=== PATIENT | female | born 1935 | race Caucasian/White ===

== ENCOUNTER → 2018-11-08 11:33 | Outpatient (CLI) | payer MEDICARE, BC, MEDICAID, SELFPAY ==
[2018-11-08 12:28] LABS: BUN Creatinine Ratio 15.7 (6-22); Blood Urea Nitrogen 11 mg/dL (7-17); Calcium 9.5 mg/dL (8.4-10.2); Carbon Dioxide 27 mmol/L (22-32); Chloride 99 mmol/L (98-107); Estimated Glomerular Filt Rate > 60.0 mL/min (>60); Glucose 125 mg/dL (80-110); HEMOLYSIS < 15 (0-50); Potassium 3.7 mmol/L (3.4-5.1); Sodium 138 mmol/L (137-145)
[2018-11-08 13:13] LABS: Hematocrit 32.6 % (36-46); Mean Corpuscular HGB Conc 33.6 % (30-36); Mean Corpuscular Hemoglobin 34.4 PG (26-34); Mean Corpuscular Volume 102.5 fL (80-100); Platelet Count 185 X10^3/uL (150-400); Red Blood Cell Count 3.18 X10^6/uL (4.0-5.2); Red Cell Distribution Width 15.4 % (11.6-14.8); White Blood Cell Count 8.5 X10^3/uL (4.5-11.0)
[2018-11-08 15:20] LABS: Alanine Aminotransferase 32 IU/L (9-52); Albumin 4.3 g/dL (3.5-5.0); Albumin Globulin Ratio 1.3 (1.0-2.8); Alkaline Phosphatase 112 U/L (38-126); Aspartate Aminotransferase 42 IU/L (14-36); Bilirubin Total 0.7 mg/dL (0.2-1.3); Bilirubin Unconjugated 0.4 mg/dL (0.0-1.1); Globulin 3.2 g/dL (1.7-4.1); HEMOLYSIS < 15 (0-50); Total Protein 7.5 g/dL (6.3-8.2)
[2018-11-08 15:50] LABS: TSH w/ Reflex to FT4 4.59 uIU/mL (0.47-4.68); Vitamin D 25 Hydroxy (D3) < 12.8 ng/mL (30.0-100.0)
[2018-11-08 16:25] LABS: Folate 5.7 ng/mL (2.76-20.0); Vitamin B12 371 pg/mL (239-931)
== END ==
PROVIDERS: Family Provider Family Medicine; PCP Student in an Organized Health Care Education/Training Program; Visit Provider Student in an Organized Health Care Education/Training Program
DX: E55.9 Vitamin D deficiency, unspecified (principal); H34.232 Retinal artery branch occlusion, left eye; Z86.711 Personal history of pulmonary embolism; D53.1 Other megaloblastic anemias, not elsewhere classified; I10 Essential (primary) hypertension
CPT/HCPCS: 36415; 80048; 80076; 82306; 82607; 82746; 84443; 85027

== ENCOUNTER → 2018-12-20 07:35 | Outpatient (CLI) | payer MEDICARE, BC, MEDICAID, SELFPAY ==
[2018-12-20 08:09] LABS: Hematocrit 30.9 % (36-46); Hemoglobin 10.4 g/dL (12.0-16.0); Mean Corpuscular HGB Conc 33.7 % (30-36); Mean Corpuscular Hemoglobin 34.7 PG (26-34); Mean Corpuscular Volume 102.9 fL (80-100); Platelet Count 173 X10^3/uL (150-400); Red Cell Distribution Width 16.4 % (11.6-14.8); White Blood Cell Count 8.6 X10^3/uL (4.5-11.0)
[2018-12-20 08:25] LABS: Reticulocyte Count, Percent 1.2 % (1.06-2.63)
[2018-12-20 09:21] LABS: HEMOLYSIS < 15 (0-50); Iron 183 ug/dL (37-170)
[2018-12-20 09:23] LABS: Alkaline Phosphatase 98 U/L (38-126); BUN Creatinine Ratio 15.7 (6-22); Blood Urea Nitrogen 11 mg/dL (7-17); Calcium 10.6 mg/dL (8.4-10.2); Carbon Dioxide 27 mmol/L (22-32); Chloride 98 mmol/L (98-107); Estimated Glomerular Filt Rate > 60.0 mL/min (>60); Glucose 112 mg/dL (80-110); HEMOLYSIS < 15 (0-50); Potassium 4.2 mmol/L (3.4-5.1); Sodium 136 mmol/L (137-145)
[2018-12-20 09:27] LABS: Neutrophils Absolute Manual 5246 /uL (3000-5900); Total Cells Counted 100
[2018-12-20 09:28] LABS: RBC Morphology Normal Morphology
[2018-12-20 09:33] LABS: Percent Iron Saturation 56 % (15-50); Total Iron Binding Capacity 327 ug/dL (265-497); Transferrin 292 mg/dL (206-381)
[2018-12-20 09:38] LABS: Vitamin D 25 Hydroxy (D3) 39.2 ng/mL (30.0-100.0)
[2018-12-24 17:07] LABS: Parathyroid Hormone Int 5 pg/mL (14-64)
--- NOTE | 2019-01-08 16:27 | ONC.SCHED ---
Left msg. for new patient to get her scheduled.
== END ==
PROVIDERS: PCP Student in an Organized Health Care Education/Training Program; Visit Provider Student in an Organized Health Care Education/Training Program
DX: D50.9 Iron deficiency anemia, unspecified (principal); E55.9 Vitamin D deficiency, unspecified
CPT/HCPCS: 36415; 80048; 82306; 82728; 83516; 83540; 83550; 83970; 84075; 84100; 85025; 85045

== ENCOUNTER → 2019-01-03 09:51 | Outpatient (CLI) | payer MEDICARE, BC, MEDICAID, SELFPAY | PROVIDERS: PCP Student in an Organized Health Care Education/Training Program; Visit Provider Student in an Organized Health Care Education/Training Program | DX: Z13.820 Encounter for screening for osteoporosis (principal); M81.0 Age-related osteoporosis without current pathological fracture; Z78.0 Asymptomatic menopausal state; Z87.891 Personal history of nicotine dependence | CPT/HCPCS: 77080 ==

== ENCOUNTER → 2019-02-11 07:41 | Outpatient (CLI) | payer MEDICARE, BC, MEDICAID, SELFPAY ==
--- NOTE | 2019-02-11 07:44 | DI.US.S_ITS ---
PROCEDURE: US ABDOMEN COMPLETE INDICATIONS: ANEMIA, IRON OVERLOAD, HEPATOMEGALY TECHNIQUE: Real-time scanning was performed of the abdominal and retroperitoneal organs, with image documentation. COMPARISON: CT pulmonary angiogram 11/23/2011. FINDINGS: Liver: Enlarged measuring at least 18 cm in diameter. Increased in echogenicity. Decreased sonographic penetration. Gallbladder: Nondilated. No stones or sludge. Normal gallbladder wall thickness. No pericholecystic fluid. Negative sonographic Elizabeth's sign. Biliary ducts: No intrahepatic biliary ductal dilatation seen. Extrahepatic bile ducts are not well-seen. Pancreas: Not well-seen. Spleen: Spleen is normal in size and homogeneous in echotexture. Measures 8.3 cm. Kidneys: Kidneys are normal in size and echotexture. Right kidney measures 11 cm long; left kidney measures 9.6 cm long. No hydronephrosis or nephrolithiasis. No solid masses. Aorta: Visualized proximal aorta is normal in caliber at less than 3 cm. Iliacs: Not well-seen IVC: Intrahepatic inferior vena cava is patent. Miscellaneous: No free abdominal fluid. IMPRESSION: Exam is limited by acoustic windows. 1. Hepatomegaly. Hepatic steatosis. 2. No gallstones seen. 3. No free fluid. Dictated by: Gurpreet Lew M.D. on 02/11/2019 at 9:06 Approved by: Gurpreet Lew M.D. on 02/11/2019 at 9:11
== END ==
PROVIDERS: Family Provider Student in an Organized Health Care Education/Training Program; PCP Student in an Organized Health Care Education/Training Program; Visit Provider Internal Medicine Hematology & Oncology
DX: R16.0 Hepatomegaly, not elsewhere classified (principal); K76.0 Fatty (change of) liver, not elsewhere classified; E83.19 Other disorders of iron metabolism; D53.9 Nutritional anemia, unspecified
CPT/HCPCS: 76700

== ENCOUNTER → 2020-05-03 07:47 | Outpatient (CLI) | payer MEDICARE, BC, MEDICAID, SELFPAY ==
[2020-05-03 08:47] LABS: Add Manual Diff / Slide Review NO; Basophils Absolute Auto 200 /uL (0-100); Basophils Percent Auto 2.7 % (0-2); Eosinophils Absolute Auto 200 /uL (0-450); Eosinophils Percent Auto 3.4 % (2-4); Hematocrit 25.9 % (36-46); Hemoglobin 8.5 g/dL (12.0-16.0); Lymphocytes Absolute Auto 2800 /uL (1100-4500); Lymphocytes Percent Auto 38.6 % (25-40); Mean Corpuscular HGB Conc 32.8 % (30-36); Mean Corpuscular Hemoglobin 35.5 PG (26-34); Mean Corpuscular Volume 108.2 fL (80-100); Monocytes Absolute Auto 1100 /uL (0-900); Monocytes Percent Auto 14.5 % (3-14); Neutrophils Absolute Auto 3000 /uL (1500-7000); Neutrophils Percent Auto 40.8 % (50-75); Platelet Count 206 X10^3/uL (150-400); Red Blood Cell Count 2.39 X10^6/uL (4.0-5.2); Red Cell Distribution Width 22.3 % (11.6-14.8); White Blood Cell Count 7.3 X10^3/uL (4.5-11.0)
[2020-05-03 08:56] LABS: Alanine Aminotransferase 24 IU/L (<35); Albumin 4.4 g/dL (3.5-5.0); Albumin Globulin Ratio 1.3 (1.0-2.8); Alkaline Phosphatase 80 U/L (38-126); Aspartate Aminotransferase 43 IU/L (14-36); BUN Creatinine Ratio 21.9 (6-22); Bilirubin Total 0.5 mg/dL (0.2-1.3); Blood Urea Nitrogen 16 mg/dL (7-17); Calcium 9.7 mg/dL (8.4-10.2); Carbon Dioxide 30 mmol/L (22-32); Chloride 101 mmol/L (98-107); Estimated Glomerular Filt Rate > 60.0 mL/min (>60); Globulin 3.3 g/dL (1.7-4.1); Glucose 127 mg/dL (80-110); HEMOLYSIS < 15 (0-50); Potassium 4.4 mmol/L (3.4-5.1); Sodium 138 mmol/L (137-145); Total Protein 7.7 g/dL (6.3-8.2)
[2020-05-03 09:11] LABS: HEMOLYSIS < 15 (0-50); Iron 221 ug/dL (37-170)
[2020-05-03 09:17] LABS: Anisocytosis 3+; Hypochromasia 2+; Poikilocytosis 1+; Target Cells 2+
[2020-05-03 09:18] LABS: Schistocytes 1+
[2020-05-03 09:24] LABS: Percent Iron Saturation 66 % (15-50); Total Iron Binding Capacity 335 ug/dL (265-497); Transferrin 260 mg/dL (206-381)
[2020-05-03 09:27] LABS: Vitamin D 25 Hydroxy (D3) 33.3 ng/mL (30.0-100.0)
[2020-05-03 09:29] LABS: Ferritin 559 ng/mL (11-264)
== END ==
PROVIDERS: Family Provider Student in an Organized Health Care Education/Training Program; PCP Student in an Organized Health Care Education/Training Program; Referring Provider Student in an Organized Health Care Education/Training Program; Visit Provider Student in an Organized Health Care Education/Training Program
DX: D53.9 Nutritional anemia, unspecified (principal); E55.9 Vitamin D deficiency, unspecified; E83.19 Other disorders of iron metabolism; I10 Essential (primary) hypertension; R16.0 Hepatomegaly, not elsewhere classified
CPT/HCPCS: 36415; 80053; 82306; 82728; 83540; 83550; 85025

== ENCOUNTER 2021-10-18 19:20 | Emergency (ER) | payer MEDICARE, BC, SELFPAY ==
[2021-10-18] VITALS (20 sets, daily range): BP systolic 117–159; BP diastolic 54–76; PULSE 76–100; RESP 12–29; TEMP 36.2–36.8; O2SAT 97–100; BMI 27.1
--- NOTE | 2021-10-18 19:20 | DI.RAD.S_ITS ---
PROCEDURE: XR CHEST 1V INDICATIONS: chest pain TECHNIQUE: One view of the chest was acquired. COMPARISON: [facility], , CHEST 1 VIEW, 11/23/2011, 12:25. FINDINGS: Surgical changes and devices: None. Lungs and pleura: Lungs demonstrate no definite acute consolidation, with evaluation limited due to overlying calcified breast implants. No pleural effusions or pneumothorax. Mediastinum: Mediastinal contours appear normal. Heart size is normal. Bones and chest wall: No suspicious bony lesions. There are peripherally calcified breast implants redemonstrated. IMPRESSION: 1. No definite acute cardiopulmonary disease. Dictated by: Lee Khoury M.D. on 10/18/2021 at 20:51 Approved by: Lee Khoury M.D. on 10/18/2021 at 20:52
[2021-10-18 19:53] LABS: INR 1.3 (0.9-1.3); Mean Corpuscular HGB Conc 31.3 % (30-36); Mean Corpuscular Volume 105.3 fL (80-100); Platelet Count 41 X10^3/uL (150-400); Prothrombin Time 15.1 SECONDS (10.1-12.7); Red Blood Cell Count 1.89 X10^6/uL (4.0-5.2)
[2021-10-18 19:56] LABS: PTT Partial Thromboplastin Tim 32 SECONDS (26.4-36.2)
[2021-10-18 19:57] LABS: Hematocrit 19.9 % (36-46); Hemoglobin 6.2 g/dL (12.0-16.0)
[2021-10-18 20:01] LABS: Alanine Aminotransferase 16 IU/L (<35); Albumin 4.4 g/dL (3.5-5.0); Albumin Globulin Ratio 1.2 (1.0-2.8); Alkaline Phosphatase 65 U/L (38-126); Aspartate Aminotransferase 35 IU/L (14-36); Blood Urea Nitrogen 9 mg/dL (7-17); Carbon Dioxide 22 mmol/L (22-32); Chloride 98 mmol/L (98-107); Creatine Kinase 22 U/L (30-135); Estimated Glomerular Filt Rate > 60 mL/min (>60); Globulin 3.7 g/dL (1.7-4.1); Glucose 140 mg/dL (80-110); Lipase 35 U/L (23-300); Magnesium 2.3 mg/dL (1.6-2.3); Sodium 135 mmol/L (137-145); Total Protein 8.1 g/dL (6.3-8.2)
[2021-10-18 20:08] LABS: HEMOLYSIS 97 (0-50)
[2021-10-18 20:10] LABS: Add Manual Diff / Slide Review YES
--- NOTE | 2021-10-18 20:10 | PC.NURSE ---
Blood consent signed
[2021-10-18 20:12] LABS: Troponin I < 0.012 ng/mL (0.01-0.034)
[2021-10-18 20:14] LABS: Neutrophils Absolute Manual 7200 /uL (3000-5900); Nucleated Red Blood Cells 4 #/Diff; Total Cells Counted 100
[2021-10-18 20:15] LABS: Anisocytosis 1+; Hypochromasia 1+; Macrocytosis 2+
[2021-10-18 20:16] LABS: Polychromasia 2+
--- NOTE | 2021-10-18 20:41 | ED.GENADULT ---
HPI - General Adult General Chief complaint: Syncope Stated complaint: syncope Time Seen by Provider: 10/18/21 19:57 Source: patient Mode of arrival: EMS Limitations: no limitations History of Present Illness HPI narrative: 86-year-old female who was at a local drugstore shopping when she stated that she had a sudden episode where she became very lightheaded. Initial reports were that the patient passed out. She denied any chest pain nor palpitations no shortness of breath before hand. No headache. No injuries from the event. EMS was called. They found her to be hypotensive. They gave her fluids and this improved her blood pressure. She denies any loss of blood. Not on blood thinners. No blood or stool. No urinary symptoms. She stated that she recently started noticing a lump in the left side of her abdomen. At the time of my evaluation after receiving fluids she states she feels much better. Related Data Home Medications Medication Instructions Recorded Confirmed acetaminophen 325 mg tablet PRN Pain (Scale Score 1-3) ##0 02/08/17 07/11/21 cholecalciferol (vitamin D3) 50 2,000 unit PO DAILY 12/27/18 07/11/21 mcg (2,000 unit) capsule Previous Rx's Medication Instructions Recorded atorvastatin 20 mg tablet (Lipitor) 20 mg PO BEDTIME #90 tabs 07/11/21 duloxetine 30 mg capsule,delayed 30 mg PO DAILY #90 caps 07/11/21 release losartan 50 mg tablet 50 mg PO DAILY #90 tabs 07/11/21 Allergies Allergy/AdvReac Type Severity Reaction Status Date / Time Penicillins [PENICILLINS] Allergy Unknown Verified 10/18/21 19:26 Review of Systems Constitutional Constitutional: Denies fever(s) and Denies headache(s) ENT Ears, Nose, Mouth, and Throat: Denies headache(s) Cardiovascular Cardiovascular: Denies chest pain, Reports syncope, Denies rapid heart rate, Reports lightheadedness, Denies dyspnea and Denies dyspnea on exertion Respiratory Respiratory: Denies dyspnea and Denies dyspnea on exertion Gastrointestinal Gastrointestinal: Denies abdominal pain, Denies melena, Denies change in bowel habits, Denies nausea and Denies vomiting Genitourinary Genitourinary: Denies dysuria Musculoskeletal Musculoskeletal: Denies arthralgias, Denies back pain and Denies myalgias Integumentary/Breasts Skin/Breast: Denies rash Neurologic Neurologic: Reports syncope and Denies headache(s) Hematologic/Lymphatic On Anticoagulants: No Allergic/Immunologic Allergic/Immunologic: Reports system reviewed and no additional complaints, except as documented Patient History Medical History Breast implant status (~1981) Diverticulosis Hypertension Pulmonary embolism (~11/2011) 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) Spinal stenosis of lumbosacral region Uveitis (02/19/15) Surgical History History of bilateral breast implants (~1981) History of cataract removal with insertion of prosthetic lens History of spinal surgery (~11/2017) Family History Mother Diabetes mellitus Sister Parkinson disease Social History Smoking Status: Never smoker alcohol intake: current (afternoon Bloody with V8 juice) substance use type: does not use Smoking Status: Never smoker alcohol intake frequency: holidays/special occasions only Substance Use Type: does not use Exam Initial Vital Signs Initial Vital Signs: Vital Signs Temperature 97.1 F L 10/18/21 19:20 Pulse Rate 90 10/18/21 19:20 Respiratory Rate 14 10/18/21 19:20 Blood Pressure 138/58 L 10/18/21 19:20 Pulse Oximetry 100 10/18/21 19:20 Oxygen Delivery Method 10/18/21 19:20 Const General: cooperative, comfortable and No ill appearing [facility] Head: normal to inspection and normocephalic Face and sinus: normal facial exam Chest Chest: normal inspection of the chest Resp Effort & Inspection: normal respiratory effort Auscultation: clear to auscultation bilaterally Cardio Rate: regular rate Rhythm: regular rhythm GI Inspection: normal to inspection and non-distended Palpation: mass (Left side abdomen) Rectal Exam: heme negative stool and hemorrhoids (Nonthrombosed external) Skin General: no rashes or lesions noted Neuro General: patient alert, patient awake, patient oriented x3, gait normal and moves all extremities Extrem General: normal to inspection and capillary refill normal Psych Appearance: grossly normal and well kempt Scores GCS [place] coma scale eye opening: Spontaneous [place] coma scale verbal response: Orientated [place] coma scale motor response: Obey commands [place] coma scale total score: 15 Course Orders Ordered: ED Orders 10/18/21 21:15 CT abdomen pelvis w con Stat Vital Signs Vital signs: Vital Signs - 8 hr 10/18/21 21:48 10/18/21 21:48 10/18/21 22:00 Temperature Pulse Rate 100 H Respiratory Rate 19 Blood Pressure 145/65 H 143/66 H Pulse Oximetry 100 10/18/21 22:00 10/18/21 22:30 10/18/21 22:30 Temperature Pulse Rate 98 H 97 H Respiratory Rate 12 23 Blood Pressure 150/66 H Pulse Oximetry 99 100 10/18/21 23:00 10/18/21 23:00 10/18/21 23:33 Temperature 98.2 F Pulse Rate 95 H 91 H Respiratory Rate 16 20 Blood Pressure 144/65 H 150/65 H Pulse Oximetry 98 10/18/21 23:44 10/18/21 23:59 10/18/21 23:28 Temperature 98.2 F 97.9 F Pulse Rate 92 H 89 94 H Respiratory Rate 17 17 29 H Blood Pressure 150/65 H 159/76 H Pulse Oximetry 98 10/18/21 23:28 10/18/21 23:30 10/19/21 00:00 Temperature Pulse Rate 93 H Respiratory Rate 23 Blood Pressure 150/65 H 159/68 H Pulse Oximetry 99 10/19/21 00:00 10/19/21 00:29 10/19/21 00:29 Temperature Pulse Rate 90 105 H Respiratory Rate 16 25 H Blood Pressure 177/77 H Pulse Oximetry 98 98 10/19/21 00:30 10/19/21 00:30 10/19/21 01:17 Temperature 97.9 F Pulse Rate 104 H 89 Respiratory Rate 23 17 Blood Pressure 171/78 H 152/70 H Pulse Oximetry 99 10/19/21 01:00 10/19/21 01:01 10/19/21 01:01 Temperature Pulse Rate 92 H 92 H Respiratory Rate 21 21 Blood Pressure 155/67 H Pulse Oximetry 98 98 Medical Decision Making Medical Records Medical records reviewed: Yes I reviewed the patient's medical records. Lab Data Lab results reviewed: Yes I reviewed the patient's lab results. Result diagrams: 10/18/21 19:22 10/18/21 19:22 Labs: Lab Results 10/18/21 10/18/21 10/18/21 Range/Units 19:22 19:22 19:22 WBC 18.0 H (4.5-11.0) X10^3/uL RBC 1.89 L (4.0-5.2) X10^6/uL Hgb 6.2 L* (12.0-16.0) g/dL Hct 19.9 L* (36-46) % MCV 105.3 H (80-100) fL MCH 33.0 (26-34) PG MCHC 31.3 (30-36) % RDW 18.0 H (11.6-14.8) % Plt Count 41 L (150-400) X10^3/uL Neut % (Auto) Leaflet Or Newspaper Deliverer Lymph % (Auto) Leaflet Or Newspaper Deliverer Crisp % (Auto) Leaflet Or Newspaper Deliverer Eos % (Auto) Leaflet Or Newspaper Deliverer Baso % (Auto) Leaflet Or Newspaper Deliverer Neut # (Auto) Leaflet Or Newspaper Deliverer Lymph # (Auto) Leaflet Or Newspaper Deliverer Crisp # (Auto) Leaflet Or Newspaper Deliverer Eos # (Auto) Leaflet Or Newspaper Deliverer Baso # (Auto) Leaflet Or Newspaper Deliverer Total Counted 100 Seg Neutrophils % 33.0 L (38-70) % Band Neutrophils % 7.0 (3-7) % Lymphocytes % (Manual) 23.0 L (25-45) % Atypical Lymphs % 3.0 H ( - 0) % Monocytes % (Manual) 25.0 H (2-11) % Eosinophils % (Manual) 3.0 (2-4) % Metamyelocytes % 1.0 H (-0) % Blast Cells % 5.0 H (-0) % Neutrophils # (Manual) 7200 H (5304-3524) /uL Nucleated RBCs 4 H ( - 0) #/Diff RBC Morphology See below Polychromasia 2+ H Hypochromasia 1+ H Anisocytosis 1+ H Macrocytosis 2+ H PT 15.1 H (10.1-12.7) SECONDS INR 1.3 (0.9-1.3) APTT 32 (26.4-36.2) SECONDS Sodium 135 L (137-145) mmol/L Potassium TNP Chloride 98 (98-107) mmol/L Carbon Dioxide 22 (22-32) mmol/L BUN 9 (7-17) mg/dL Creatinine 0.75 (0.52-1.04) mg/dL Estimated GFR > 60 (>60) mL/min BUN/Creatinine Ratio 12.0 (6-22) Glucose 140 H (80-110) mg/dL Calcium 9.0 (8.4-10.2) mg/dL Magnesium 2.3 (1.6-2.3) mg/dL Total Bilirubin TNP AST 35 (14-36) IU/L ALT 16 (<35) IU/L Alkaline Phosphatase 65 (38-126) U/L Total Creatine Kinase 22 L (30-135) U/L CK-MB (CK-2) TNP CK-MB (CK-2) Rel Index TNP Troponin I < 0.012 (0.01-0.034) ng/mL Total Protein 8.1 (6.3-8.2) g/dL Albumin 4.4 (3.5-5.0) g/dL Globulin 3.7 (1.7-4.1) g/dL Albumin/Globulin Ratio 1.2 (1.0-2.8) Lipase 35 (23-300) U/L Blood Type Antibody Screen Crossmatch 10/18/21 Range/Units 20:05 WBC (4.5-11.0) X10^3/uL RBC (4.0-5.2) X10^6/uL Hgb (12.0-16.0) g/dL Hct (36-46) % MCV (80-100) fL MCH (26-34) PG MCHC (30-36) % RDW (11.6-14.8) % Plt Count (150-400) X10^3/uL Neut % (Auto) Lymph % (Auto) Crisp % (Auto) Eos % (Auto) Baso % (Auto) Neut # (Auto) Lymph # (Auto) Crisp # (Auto) Eos # (Auto) Baso # (Auto) Total Counted Seg Neutrophils % (38-70) % Band Neutrophils % (3-7) % Lymphocytes % (Manual) (25-45) % Atypical Lymphs % ( - 0) % Monocytes % (Manual) (2-11) % Eosinophils % (Manual) (2-4) % Metamyelocytes % (-0) % Blast Cells % (-0) % Neutrophils # (Manual) (8951-5373) /uL Nucleated RBCs ( - 0) #/Diff RBC Morphology Polychromasia Hypochromasia Anisocytosis Macrocytosis PT (10.1-12.7) SECONDS INR (0.9-1.3) APTT (26.4-36.2) SECONDS Sodium (137-145) mmol/L Potassium Chloride (98-107) mmol/L Carbon Dioxide (22-32) mmol/L BUN (7-17) mg/dL Creatinine (0.52-1.04) mg/dL Estimated GFR (>60) mL/min BUN/Creatinine Ratio (6-22) Glucose (80-110) mg/dL Calcium (8.4-10.2) mg/dL Magnesium (1.6-2.3) mg/dL Total Bilirubin AST (14-36) IU/L ALT (<35) IU/L Alkaline Phosphatase (38-126) U/L Total Creatine Kinase (30-135) U/L CK-MB (CK-2) CK-MB (CK-2) Rel Index Troponin I (0.01-0.034) ng/mL Total Protein (6.3-8.2) g/dL Albumin (3.5-5.0) g/dL Globulin (1.7-4.1) g/dL Albumin/Globulin Ratio (1.0-2.8) Lipase (23-300) U/L Blood Type A Positive Antibody Screen Negative Crossmatch See Detail Urine Dip Bedside Urine Glucose Negative Bedside Urine Bilirubin - Negative Bedside Urine Ketone - Negative Urine Specific [place] 1.010 Bedside Urine Occult Blood - Negative Bedside Urine pH 6.5 Bedside Urine Protein - Negative Bedside Urine Urobilinogen - Negative Bedside Urine Nitrite - Negative Bedside Urine Leukocytes - Negative Esterase Point of care testing: Urine Dip Bedside Urine Glucose Negative Bedside Urine Bilirubin - Negative Bedside Urine Ketone - Negative Urine Specific [place] 1.010 Bedside Urine Occult Blood - Negative Bedside Urine pH 6.5 Bedside Urine Protein - Negative Bedside Urine Urobilinogen - Negative Bedside Urine Nitrite - Negative Bedside Urine Leukocytes - Negative Esterase Imaging Data Chest x-ray: Radiologist's Impression: [address] [address] XRay Report Signed Patient: Clari Maciel MR#: [id number] : 1935 Acct:[id number] Age/Sex: 86 / F Date of Service: 10/18/21 Loc: ED Accession Number: [id number] ?? Procedure: XR chest 1V Ordering Provider: Trino Cox D.O. PROCEDURE:? XR CHEST 1V ? INDICATIONS:? chest pain ? TECHNIQUE:? One view of the chest was acquired.? ? COMPARISON:? [facility], CR, CHEST 1 VIEW, 11/23/2011, 12:25. ? FINDINGS:? ? Surgical changes and devices:? None.? ? Lungs and pleura:? Lungs demonstrate no definite acute consolidation, with evaluation limited due to overlying calcified breast implants.? No pleural effusions or pneumothorax.? ? Mediastinum:? Mediastinal contours appear normal.? Heart size is normal.? ? Bones and chest wall:? No suspicious bony lesions.? There are peripherally calcified breast implants redemonstrated. ? IMPRESSION:? ? 1. No definite acute cardiopulmonary disease. ? ? Dictated by: Lee Khoury M.D. on 10/18/2021 at 20:51 ? ? Approved by: Lee Khoury M.D. on 10/18/2021 at 20:52? CT scan - abdomen/pelvis: Radiologist's Impression: [place] [address] CT Scan Report Signed Patient: Clari Maciel MR#: [id number] : 1935 Acct:[id number] Age/Sex: 86 / F Date of Service: 10/18/21 Loc: ED Accession Number: [id number] ?? Procedure: CT abdomen pelvis w con Ordering Provider: Trino Cox D.O. PROCEDURE:? CT ABDOMEN PELVIS W CON ? INDICATIONS:? Anemia, left-sided abdominal mass ? TECHNIQUE:? After the administration of IV contrast, axial sections were acquired from the lung bases to the pubic symphysis.? Coronal and sagittal reformats were performed.? For radiation dose reduction, the following was used:? automated exposure control, adjustment of mA and/or kV according to patient size. ? COMPARISON:? [facility], MR, L-SPINE WITHOUT CONTRAST, 07/20/2011, 7:00. ? FINDINGS:? Image quality:? Excellent.? ? Lung bases:? There is mild dependent atelectasis and scarring in the lung bases.? ? Heart:? Heart is mildly enlarged.? There is a small hiatal hernia. ? ? ABDOMEN: Liver:? No mass lesion. Gallbladder:? The gallbladder is distended without calcified gallstones, wall thickening, or pericholecystic fluid. Biliary ducts:? No biliary ductal dilatation.? ? Pancreas:? Unremarkable.? ? Spleen:? Spleen is enlarged, measuring approximately 13.5 x 8.4 x 12.1 cm. Adrenal Glands:? No adrenal nodules.? ? Kidneys and Ureters:? No hydronephrosis.? ? ? Stomach and Bowel:? Stomach and small bowel are normal in caliber and wall thickness.? The appendix is normal in appearance.? There is colonic diverticulosis without definite acute diverticulitis.? Mild segmental wall thickening is demonstrated in the sigmoid colon consistent with a nonspecific colitis.? Peritoneum:? No abnormal intraperitoneal fluid.? No free air.? ? Ventral Wall: ? No hernia.? Abdominal Nodes:? No retroperitoneal or mesenteric adenopathy by size criteria.? Vessels:? Aorta and inferior vena cava are normal in size.? There is extensive atherosclerotic vascular calcification of the aorta and its branch vessels.? ? PELVIS: Pelvic Organs:? Unremarkable.? ? Bladder:? There is distention of the urinary bladder without wall thickening or calcified stones.? ? Pelvic Nodes: No enlarged lymph nodes.? Miscellaneous: No inguinal hernias are seen. ? ? ? Bones:? There is an inferior endplate compression deformity of the T1 vertebral body with up to approximately 60% loss of height.? This is new compared to the prior MRI but is of indeterminate acuity.? There is associated mild spinal canal narrowing at T12-L1.? Mild superior endplate scalloping is demonstrated in the L2 vertebral body with up to approximately 25% loss of height.? This appears similar compared to the prior MRI.? Visualized osseous structures demonstrate no suspicious focal lesions. ? IMPRESSION:? ? 1. Prominent splenomegaly likely corresponding to the patient's left-sided palpable abnormality.? The finding is nonspecific and correlation is recommended clinically. ? 2. No lymphadenopathy by size criteria within the abdomen or pelvis. ? 3. Mild segmental wall thickening in the sigmoid colon consistent with a likely infectious or inflammatory colitis.? Colonic diverticulosis is present without definite acute diverticulitis. ? 4. Mild inferior endplate compression deformity of the T12 vertebral body of indeterminate acuity but new compared to the prior study.? There is associated mild spinal canal narrowing at T12-L1.? ? ? Dictated by: Lee Khoury M.D. on 10/18/2021 at 22:13 ? ? Approved by: Lee Khoury M.D. on 10/18/2021 at 22:27?? ECG Data Attestation: I personally reviewed and interpreted this ECG as follows: Interpretation: Sinus rhythm Ventricular rate 90 Normal QRS Normal QTC No ST T wave changes MDM Narrative Medical decision making narrative: Patient is somewhat pale appearing however is not tachycardic. Not hypotensive. H&H today is low. She is Hemoccult negative. Has not had any vomiting. Was transfused 2 units of packed red blood cells. She felt much better afterwards. Ambulated around the emergency department without shortness of breath nor lightheadedness. Patient does have a mass in her left side abdomen. CT scan shows splenomegaly which corresponds to the location of the mass. Unsure the exact etiology of this however her anemia and splenomegaly could be related. Patient would like to go home. An e-mail was sent to her primary doctor for her to follow-up and she will contact her primary doctor for follow-up as well. She was given strict return precautions. She expressed understanding and agreement. Discharge Plan Departure Patient Disposition: Home Clinical Impression: Anemia, Splenomegaly Instructions: Anemia, DI for Enlarged Spleen Activity Restrictions/Additional Instructions: It is important that you follow-up with your primary doctor to discuss further evaluation of why your blood counts were low and why your spleen is enlarged. These 2 issues could potentially be related. You need to contact your primary doctor's office when they open for a follow-up. Return to the emergency department for any new or worsening symptoms. Prescriptions: No Action acetaminophen 325 mg tablet PRN (Reason: Pain (Scale Score 1-3)) Qty: 0 cholecalciferol (vitamin D3) 2,000 unit capsule 2,000 unit PO DAILY duloxetine 30 mg capsule,delayed release(DR/EC) 30 mg PO DAILY Qty: 90 3RF atorvastatin [Lipitor] 20 mg tablet 20 mg PO BEDTIME Qty: 90 3RF losartan 50 mg tablet 50 mg PO DAILY Qty: 90 3RF Referrals: Mike Camp MD [Primary Care Provider] - Visit Report Forms: Patient Portal/API
--- NOTE | 2021-10-18 21:15 | DI.CT.S_ITS ---
PROCEDURE: CT ABDOMEN PELVIS W CON INDICATIONS: Anemia, left-sided abdominal mass TECHNIQUE: After the administration of IV contrast, axial sections were acquired from the lung bases to the pubic symphysis. Coronal and sagittal reformats were performed. For radiation dose reduction, the following was used: automated exposure control, adjustment of mA and/or kV according to patient size. COMPARISON: [facility], , L-SPINE WITHOUT CONTRAST, 07/20/2011, 7:00. FINDINGS: Image quality: Excellent. Lung bases: There is mild dependent atelectasis and scarring in the lung bases. Heart: Heart is mildly enlarged. There is a small hiatal hernia. ABDOMEN: Liver: No mass lesion. Gallbladder: The gallbladder is distended without calcified gallstones, wall thickening, or pericholecystic fluid. Biliary ducts: No biliary ductal dilatation. Pancreas: Unremarkable. Spleen: Spleen is enlarged, measuring approximately 13.5 x 8.4 x 12.1 cm. Adrenal Glands: No adrenal nodules. Kidneys and Ureters: No hydronephrosis. Stomach and Bowel: Stomach and small bowel are normal in caliber and wall thickness. The appendix is normal in appearance. There is colonic diverticulosis without definite acute diverticulitis. Mild segmental wall thickening is demonstrated in the sigmoid colon consistent with a nonspecific colitis. Peritoneum: No abnormal intraperitoneal fluid. No free air. Ventral Wall: No hernia. Abdominal Nodes: No retroperitoneal or mesenteric adenopathy by size criteria. Vessels: Aorta and inferior vena cava are normal in size. There is extensive atherosclerotic vascular calcification of the aorta and its branch vessels. PELVIS: Pelvic Organs: Unremarkable. Bladder: There is distention of the urinary bladder without wall thickening or calcified stones. Pelvic Nodes: No enlarged lymph nodes. Miscellaneous: No inguinal hernias are seen. Bones: There is an inferior endplate compression deformity of the T1 vertebral body with up to approximately 60% loss of height. This is new compared to the prior MRI but is of indeterminate acuity. There is associated mild spinal canal narrowing at T12-L1. Mild superior endplate scalloping is demonstrated in the L2 vertebral body with up to approximately 25% loss of height. This appears similar compared to the prior MRI. Visualized osseous structures demonstrate no suspicious focal lesions. IMPRESSION: 1. Prominent splenomegaly likely corresponding to the patient's left-sided palpable abnormality. The finding is nonspecific and correlation is recommended clinically. 2. No lymphadenopathy by size criteria within the abdomen or pelvis. 3. Mild segmental wall thickening in the sigmoid colon consistent with a likely infectious or inflammatory colitis. Colonic diverticulosis is present without definite acute diverticulitis. 4. Mild inferior endplate compression deformity of the T12 vertebral body of indeterminate acuity but new compared to the prior study. There is associated mild spinal canal narrowing at T12-L1. Dictated by: Lee Khoury M.D. on 10/18/2021 at 22:13 Approved by: Lee Khoury M.D. on 10/18/2021 at 22:27
[2021-10-19] VITALS: BP 159/68; PULSE 90; RESP 16; O2SAT 98
[2021-10-19 00:29] VITALS: BP 177/77; PULSE 105; RESP 25; O2SAT 98
[2021-10-19 00:30] VITALS: BP 171/78; PULSE 104; RESP 23; O2SAT 99
--- NOTE | 2021-10-19 00:31 | PC.NURSE ---
Addendum entered by Mandeep Munoz R.N. 10/19/21 00:53: 300mL/hr, not 350mL/hr Original Note: Pt ambulated independently to restroom with this RN standing by with portable pulse ox. Pt oxygen remained above 95% on RA, and her pulse stayed between 95-102.Pt reports that she wants to take a taxi to her car and she can drive the short distance home from there. Provider OK with pt receiving blood transfusion at 350mL/hr sicne she has tolerated 2 units of blood and is tolerating this new rate with stable vitals.
[2021-10-19 01:00] VITALS: PULSE 92; RESP 21; O2SAT 98
[2021-10-19 01:01] VITALS: BP 155/67; PULSE 92; RESP 21; O2SAT 98
[2021-10-19 01:17] VITALS: BP 152/70; PULSE 89; RESP 17; TEMP 36.6
== END 2021-10-19 01:20 | disposition home or self-care (01) ==
PROVIDERS: Emergency Provider Emergency Medicine; Family Provider Student in an Organized Health Care Education/Training Program; PCP Student in an Organized Health Care Education/Training Program
DX: D64.9 Anemia, unspecified (principal); R16.1 Splenomegaly, not elsewhere classified; R07.9 Chest pain, unspecified
CPT/HCPCS: 36430; 71045; 74177; 80053; 81003; 82550; 83690; 83735; 84484; 85007; 85025; 85610; 85730; 86850; 86900; 86901; 93005; 93010; 99284; P9016; Q9967

== ENCOUNTER 2022-07-12 15:25 | Inpatient (IN) | payer MEDICARE, BC, SELFPAY ==
[2022-07-12] VITALS (9 sets, daily range): BP systolic 115–147; BP diastolic 52–76; PULSE 86–102; RESP 15–18; TEMP 36.5–37.3; O2SAT 99–100; BMI 22.8
[2022-07-12 13:34] LABS: Hematocrit 13.5 % (36-46); Hemoglobin 4.2 g/dL (12.0-16.0)
--- NOTE | 2022-07-12 16:20 | PC.NURSE ---
Pt to room 207 via w/c from Oncology. Oriented to room, call light, bed controls, and tv controls. Consent signed for blood transfusion. Daughter at the bedside. Pt denies pain,nausea, or shortness of breath. Blood infusing at 75mls/hr. Pt declines offer to change into hospital gown.
--- NOTE | 2022-07-12 17:40 | P.HP_ITS ---
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 Patient endorses significant dyspnea on exertion, progressively worsening since her diagnosis, but acutely worse over the past two weeks. She denies any chest pain, fever, chills, or palpitations. She is slightly weak, mildly nauseous occasionally but this does not really cause a decrease in her function. She has been a little less active recently with her oncology treatments but denies any weight changes. She denies rash, melena, hematochezia or bruising. She denies any falls. Her labs this morning showed a Hg of 4.2, prior CBC showed WBC of 39, Plt of 30 with a Hg in the 5s. Per discussion with her hematology physician, Dr. Lancaster, she has exhausted all therapies and recommends transition to hospice and supportive care. 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) Spinal stenosis of lumbosacral region Uveitis (02/19/15) Surgical History History of bilateral breast implants (~1981) History of cataract removal with insertion of prosthetic lens History of spinal surgery (~11/2017) Family History Mother Diabetes mellitus Sister Parkinson disease Social History household members: none Smoking Status: Never smoker alcohol intake: current substance use type: does not use Meds Home Medications and Allergies Home Medications Medication Instructions Recorded Confirmed Type acetaminophen 325 mg tablet 325 mg PO DAILY ##0 02/08/17 07/12/22 History cholecalciferol (vitamin D3) 50 2,000 unit PO DAILY 12/27/18 07/12/22 History mcg (2,000 unit) capsule losartan 50 mg tablet 50 mg PO DAILY #90 tabs 07/11/21 07/12/22 Rx prednisolone acetate 1 % eye 1 drp EYE-BOTH BID 10/26/21 07/12/22 History drops,suspension ondansetron 8 mg disintegrating 8 mg PO Q8H #30 tabs 12/06/21 07/12/22 Rx tablet promethazine 25 mg tablet 25 mg PO Q4-6H PRN Nausea #30 tabs 12/06/21 07/12/22 Rx Allergies Allergy/AdvReac Type Severity Reaction Status Date / Time Penicillins [PENICILLINS] Allergy Unknown Verified 10/26/21 07:45 Review of Systems Review of Systems Narrative: All other systems reviewed with the patient and are negative unless otherwise stated. Exam Vital Signs (past 8 hours): - 07/12/22 15:40 07/12/22 15:40 07/12/22 16:12 Temperature 99.1 F 98.4 F Pulse Rate 102 H 91 H Respiratory Rate 15 18 Blood Pressure 147/76 H 115/53 L Pulse Oximetry 99 100 Oxygen Delivery Method Room Air Oxygen Flow Rate 0 0 07/12/22 16:35 07/12/22 16:45 Temperature 98.6 F Pulse Rate 91 H Respiratory Rate 18 Blood Pressure 123/53 L Pulse Oximetry Oxygen Delivery Method Room Air Oxygen Flow Rate Oxygen Delivery Method Room Air Oxygen Flow Rate 0 Narrative Exam Narrative: General:? Patient is well developed and well nourished, in no distress at this time. HEENT:? Normocephalic, atraumatic, extraocular muscles intact, oral pharynx is clear and mucous membranes are moist. Neck: supple and symmetric, trachea is midline, no cervical adenopathy. Negative for JVD Musculoskeletal:? Muscle strength and tone are equal within normal limits, no deformity. Extremities: No edema or joint effusions. No cyanosis or clubbing. Skin:? Pale,? Warm to touch,dry and intact without rashes, ulcerations or petechiae.? Neuro:? Alert and orientated x3,? sensation to touch intact in all extremities, no gross deficits noted of cranial nerves. Psych:? Patient has a well-kept appearance, appropriate affect, mental status attitude thought context and judgment are appropriate for age. Objective Labs 07/12/22 13:20 Labs: Laboratory Results - last 24 hr 07/12/22 07/12/22 13:20 13:20 Hgb 4.2 L* Hct 13.5 L* Blood Type A Positive Antibody Screen Negative Crossmatch See Detail Assessment & Plan Assessment & Plan narrative: 1. AML, with pancytopenia and symptomatic acute on chronic anemia - transfuse 2 U PRBC, may need additional but given minimal symptoms currently with only dyspnea on exertion will repeat CBC in the AM - Plt >10, >50 if active bleeding. No evidence of active bleeding currently. - mildly tachycardic, continue to monitor given anemia but this is quite chronic. - hospice referral 2. HTN - continue home losartan 3. HLD - not currently on medications. Code: DNR, surrogate is patient's daughter DVT: hold for anemia, thrombocytopenia Dispo: Admitted observation, probable discharge home in 1-2 days depending on response to transfusions. I have spent 20 minutes involved in palliative care planning for this patient, including goals of care discussion, review of medical conditions and different management options. Given her good current quality of life, she would like to continue supportive transfusions at this time. She is understanding that her disease is quite advanced and that all treatment options have been exhausted. She is in agreement for hospice referral at this time. Discussed case with outside oncologist, and reviewed prior documentation, including relevant labwork and imaging. Discussed plan of care with bedside nurse and patient's daughter. I have utilized all available immediate resources to obtain, update, or review the patient's current medications. COVID-19 COVID-19 status: Negative Quality VTE Deep Vein Thrombosis/Pulmonary Embolism Present on Admission: No
[2022-07-12] MEDS: prednisoLONE OPHTH SUSP 1 DROPS EYE-BOTH (21:32)
[2022-07-13 00:07] LABS: Hematocrit 25.1 % (36-46); Hemoglobin 8.3 g/dL (12.0-16.0); Mean Corpuscular Hemoglobin 29.6 PG (26-34); Mean Corpuscular Volume 89.6 fL (80-100); Red Cell Distribution Width 19.2 % (11.6-14.8)
[2022-07-13 00:12] LABS: Add Manual Diff / Slide Review YES; Platelet Count 19 X10^3/uL (150-400); White Blood Cell Count 32.8 X10^3/uL (4.5-11.0)
[2022-07-13 00:50] LABS: Neutrophils Absolute Manual 15088 /uL (3000-5900); Nucleated Red Blood Cells 10 #/Diff; Platelet Estimate Decreased on smear; Total Cells Counted 100
[2022-07-13 00:51] LABS: Anisocytosis 2+; Hypochromasia 1+
[2022-07-13 00:52] LABS: Poikilocytosis 1+
[2022-07-13 02:39] LABS: COVID19 -Nasal RAPID Negative (Negative)
[2022-07-13 03:00] VITALS: O2SAT 100
[2022-07-13 06:19] LABS: Hematocrit 25.1 % (36-46); Hemoglobin 8.4 g/dL (12.0-16.0); Mean Corpuscular HGB Conc 33.5 % (30-36); Mean Corpuscular Hemoglobin 30.3 PG (26-34); Mean Corpuscular Volume 90.7 fL (80-100); Red Blood Cell Count 2.76 X10^6/uL (4.0-5.2); Red Cell Distribution Width 18.9 % (11.6-14.8)
[2022-07-13 06:23] LABS: Alanine Aminotransferase 52 IU/L (<35); Albumin 3.8 g/dL (3.5-5.0); Albumin Globulin Ratio 1.3 (1.0-2.8); Alkaline Phosphatase 71 U/L (38-126); Aspartate Aminotransferase 51 IU/L (14-36); BUN Creatinine Ratio 14.3 (6-22); Bilirubin Total 2.3 mg/dL (0.2-1.3); Blood Urea Nitrogen 10 mg/dL (7-17); Calcium 8.6 mg/dL (8.4-10.2); Carbon Dioxide 27 mmol/L (22-32); Chloride 101 mmol/L (98-107); Estimated Glomerular Filt Rate > 60 mL/min (>60); Glucose 94 mg/dL (80-110); HEMOLYSIS < 15 (0-50); Magnesium 2.1 mg/dL (1.6-2.3); Potassium 3.7 mmol/L (3.4-5.1); Sodium 136 mmol/L (137-145); Total Protein 6.8 g/dL (6.3-8.2)
[2022-07-13 06:42] LABS: Add Manual Diff / Slide Review YES; White Blood Cell Count 31.3 X10^3/uL (4.5-11.0)
[2022-07-13 06:43] LABS: Platelet Count 20 X10^3/uL (150-400)
--- NOTE | 2022-07-13 06:43 | PC.NURSE ---
Critical lab values reported to provider. No new orders. H/H increased to non-critical after second unit of blood. WBC and Platelets remained critical.
[2022-07-13 07:25] LABS: Neutrophils Absolute Manual 13146 /uL (3000-5900); Nucleated Red Blood Cells 7 #/Diff; Total Cells Counted 100
[2022-07-13 07:26] LABS: Anisocytosis 3+
[2022-07-13 07:29] LABS: Spherocytes 1+
[2022-07-13 07:30] LABS: Poikilocytosis 1+; Polychromasia 1+
[2022-07-13 07:31] LABS: Platelet Estimate Decreased on smear; Schistocytes 1+
[2022-07-13 08:00] VITALS: BP 156/61; PULSE 82; RESP 17; TEMP 36.7; O2SAT 100
--- NOTE | 2022-07-13 08:56 | ONC.MSW ---
T/C-Left a message for the Care Management AIR QUALITY MANAGER that this AIR QUALITY MANAGER already made a hospice referral to [facility] yesterday, simultaneously while pt was being admitted inpt. The plan is for her to d/c onto hospice care, so please coordinate with their referral center for next steps. Oncology treatments are no longer an option. No further needs identified for Oncology intervention, will monitor until she is d/c'd home.
[2022-07-13] MEDS: LOSARTAN 50 MG TABLET PO (09:40)
[2022-07-13] MEDS: CHOLECALCIFEROL (VITAMIN D3) 1,000 UNIT TABLET 2000 UNIT PO (09:40)
--- NOTE | 2022-07-13 12:16 | PC.NURSE ---
Patient is alert and oriented x4, she is independent in the room and has been ambulating. She denies pain and will be getting platelets later this evening. Resting now.
--- NOTE | 2022-07-13 14:20 | PM.DS.1 ---
History of Present Illness History of Present Illness Date Patient Seen: 07/13/22 Time Patient Seen: 08:00 Chief complaint: anemia Narrative: This is a pleasant 87 year old female, with PMH of AML diagnosed in the summer, HTN, HLD lives alone and is still quite active who was a direct admission for symptomatic anemia from the oncology clinic today. Patient endorses significant dyspnea on exertion, progressively worsening since her diagnosis, but acutely worse over the past two weeks. She denies any chest pain, fever, chills, or palpitations. She is slightly weak, mildly nauseous occasionally but this does not really cause a decrease in her function. She has been a little less active recently with her oncology treatments but denies any weight changes. She denies rash, melena, hematochezia or bruising. She denies any falls. Her labs this morning showed a Hg of 4.2, prior CBC showed WBC of 39, Plt of 30 with a Hg in the 5s. Per discussion with her hematology physician, Dr. Lancaster, she has exhausted all therapies and recommends transition to hospice and supportive care. Discharge Providers Provider Date of admission: 07/12/22 15:25 Discharge Date: 07/13/22 Primary care physician: Mike Camp MD Discharge provider: Jenaro Troy DO Summary Hospital Course Discharge Diagnosis: 1. AML, symptomatic acute on chronic anemia, and thrombocytopenia. 2. HTN 3. HLD Hospital Course: This is a pleasant 87 year old female, with PMH of AML diagnosed in the summer, HTN, HLD lives alone and is still quite active who was a direct admission for symptomatic anemia. She had minimal symptoms but did have dyspnea on exertion, her Hg was 4 in the oncology clinic. She improved to >8 with 2 U PRBC. Goals of care were discussed. Given her good current functional status she would like to continue transfusions for now but realizes this is only a temporizing measure for now. She realizes her malignancy is no longer treatable but would like to maximize her current quality of life. Plt count after transfusion also dropped to 20, a pack of platelets were transfused. Patient wished to discharge home on hospice as soon as possible given her prognosis, so after transfusion (which finished in the late evening) she elected to go home and have follow up CBC drawn in the lab in the morning at the outpatient lab which was ordered. Hospice will contact the patient at home for home services. Time Spent with Patient Time spent: Greater than 30 minutes Exam Vital Signs (past 8 hours): - 07/13/22 08:00 07/13/22 07:00 07/13/22 11:56 Temperature 98.1 F Pulse Rate 82 Respiratory Rate 17 Blood Pressure 156/61 H Pulse Oximetry 100 Oxygen Delivery Method Room Air Room Air Oxygen Flow Rate 0 Oxygen Delivery Method Room Air Oxygen Flow Rate 0 Narrative Exam Narrative: General:? Patient is well developed and well nourished, in no distress at this time. HEENT:? Normocephalic, atraumatic, extraocular muscles intact, oral pharynx is clear and mucous membranes are moist. Neck: supple and symmetric, trachea is midline, no cervical adenopathy. Negative for JVD Musculoskeletal:? Muscle strength and tone are equal within normal limits, no deformity. Extremities: No edema or joint effusions. No cyanosis or clubbing. Skin:? Pale,? Warm to touch,dry and intact without rashes, ulcerations or petechiae.? Neuro:? Alert and orientated x3,? sensation to touch intact in all extremities, no gross deficits noted of cranial nerves. Psych:? Patient has a well-kept appearance, appropriate affect, mental status attitude thought context and judgment are appropriate for age. Objective Labs 07/13/22 05:45 07/13/22 05:45 Labs: Laboratory Results - last 24 hr 07/12/22 07/12/22 07/12/22 13:20 13:20 23:50 WBC 32.8 H* RBC 2.80 L Hgb 4.2 L* 8.3 L Hct 13.5 L* 25.1 L MCV 89.6 D MCH 29.6 MCHC 33.0 RDW 19.2 H Plt Count 19 L* Neut % (Auto) Not Reportable Lymph % (Auto) Not Reportable Bulloch % (Auto) Not Reportable Eos % (Auto) Not Reportable Baso % (Auto) Not Reportable Lymph # (Auto) Not Reportable [place] # (Auto) Not Reportable Baso # (Auto) Not Reportable Total Counted 100 Seg Neutrophils % 39.0 Band Neutrophils % 7.0 Lymphocytes % (Manual) 33.0 Atypical Lymphs % 5.0 H Monocytes % (Manual) 13.0 H Eosinophils % (Manual) 2.0 Basophils % (Manual) Metamyelocytes % 1.0 H Myelocytes % Neutrophils # (Manual) 21763 H Nucleated RBCs 10 H Platelet Estimate Decreased on smear Plt Morphology Comment RBC Morphology See below Polychromasia Hypochromasia 1+ H Poikilocytosis 1+ H Anisocytosis 2+ H Spherocytes Schistocytes Sodium Potassium Chloride Carbon Dioxide BUN Creatinine Estimated GFR BUN/Creatinine Ratio Glucose Calcium Magnesium Total Bilirubin AST ALT Alkaline Phosphatase Total Protein Albumin Globulin Albumin/Globulin Ratio SARS-CoV-2 (PCR) Blood Type A Positive Antibody Screen Negative Crossmatch See Detail 07/13/22 07/13/22 07/13/22 01:10 05:45 05:45 WBC 31.3 H* RBC 2.76 L Hgb 8.4 L Hct 25.1 L MCV 90.7 MCH 30.3 MCHC 33.5 RDW 18.9 H Plt Count 20 L* Neut % (Auto) Not Reportable Lymph % (Auto) Not Reportable [place] % (Auto) Not Reportable Eos % (Auto) Not Reportable Baso % (Auto) Not Reportable Lymph # (Auto) Not Reportable [place] # (Auto) Not Reportable Baso # (Auto) Not Reportable Total Counted 100 Seg Neutrophils % 37.0 L Band Neutrophils % 5.0 Lymphocytes % (Manual) 24.0 L Atypical Lymphs % 4.0 H Monocytes % (Manual) 23.0 H Eosinophils % (Manual) Basophils % (Manual) 3.0 H Metamyelocytes % 1.0 H Myelocytes % 3.0 H Neutrophils # (Manual) 07972 H Nucleated RBCs 7 H Platelet Estimate Decreased on smear Plt Morphology Comment RBC Morphology See below Polychromasia 1+ H Hypochromasia Poikilocytosis 1+ H Anisocytosis 3+ H Spherocytes 1+ H Schistocytes 1+ H Sodium 136 L Potassium 3.7 Chloride 101 Carbon Dioxide 27 BUN 10 Creatinine 0.70 Estimated GFR > 60 BUN/Creatinine Ratio 14.3 Glucose 94 Calcium 8.6 Magnesium 2.1 Total Bilirubin 2.3 H AST 51 H ALT 52 H Alkaline Phosphatase 71 Total Protein 6.8 Albumin 3.8 Globulin 3.0 Albumin/Globulin Ratio 1.3 SARS-CoV-2 (PCR) Negative Blood Type Antibody Screen Crossmatch [facility] Medical History Breast implant status (~1981) Diverticulosis Hypertension Pulmonary embolism (~11/2011) 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 Plan for continued transfusions. Given 1 Plt and 2 U PRBC. Repeat CBC tomorrow AM at outpatient lab to recheck plt count. Discharge orders & Medications Prescriptions: Continued acetaminophen 325 mg tablet 325 mg PO DAILY Qty: 0 cholecalciferol (vitamin D3) 2,000 unit capsule 2,000 unit PO DAILY losartan 50 mg tablet 50 mg PO DAILY Qty: 90 3RF prednisolone acetate 1 % drops,suspension 1 drp EYE-BOTH BID ondansetron 8 mg Tablet,Disintegrating 8 mg PO Q8H Qty: 30 1RF promethazine 25 mg Tablet 25 mg PO Q4-6H PRN (Reason: Nausea) Qty: 30 1RF Follow up/Referrals: Mike Camp MD [Primary Care Provider] - Other Ambulatory Orders: Complete Blood Count NO DIFF (Routine) Timeframe: 1 Day Facility: [facility] - Location: Laboratory Ordered By: Jenaro Troy Diet/Activity/Treatments Diet: Diet as Tolerated Visit Report/Discharge Packet Stand Alone Forms: Patient Portal/API, Stroke Signs & Symptoms Discharge Data Primary Care Provider: Mike Camp Discharges patient from system. Discharge Date/Time: 07/13/22 20:35 Quality VTE Deep Vein Thrombosis/Pulmonary Embolism Present on Admission: No
--- NOTE | 2022-07-13 14:34 | CM.DANOTE ---
Addendum entered by BJ Quiñones 07/14/22 09:15: ADD: Patient discharged yesterday evening as planned. Faxed DC Summary to [facility] Original Note: Initial DCP Assessment Note 87 yo female, resident at [facility], PMH includes AML diagnosed in the summer of 2021, HTN, HLD lives alone and is still quite active - direct admission from oncology clinic for symptomatic anemia, low platelet count According to review of chart; patient's AML no longer responding to treatment and patient has opted for Hospice care. key worker Renetta Dougherty kindly initiated the hospice referral on this patient's behalf yesterday- the day patient was being admitted to the acute care floor Placed call to Ashleigh at [facility]; patient is now scheduled for pay clerk follow up tomorrow AM between 1449-2420 Met w/patient. 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 Patient has her daughter Margo to assist her as needed. Patient tells this CHOCOLATE TEMPERER she no longer wants blood transfusions. Discussed hospice service and patient agreeable and is aware an RN from [facility] will be arriving tomorrow Plan: Discharge this evening, home w/family. [facility] following for hospice care, no DME needs at this time per patient and family PACO Discharge Planning/Care Management CM Discharge Assessment Start: 07/13/22 14:30 Freq: Status: Active Protocol: Document 07/13/22 14:30 PACO (Rec: 07/13/22 14:33 PACO [id number]) Discharge Planning Assessment Assigned District Superintendent BJ Young DPOA/Assigned Designee Name Margo Maciel, daughter Contact Information [phone] Advance Directives? No History Provided By Patient,Medical Record Prior Living Arrangements Apartment/Condo Household Members none Independent with ADL's Yes Is patient alert and oriented? Yes Barriers to Discharge No Comment Home w/family and hospice care Discharge Plan Hospice Additional Comment Hospice referral initiated by Renetta Dougherty, key worker and navigator Whiteboard Updated in Patient Room with Yes name and ext. # of District Superintendent
[2022-07-13 17:11] VITALS: BP 96/69; PULSE 98; RESP 17; TEMP 36.2
[2022-07-13 17:26] VITALS: BP 108/85; PULSE 88; RESP 16; TEMP 36.2
[2022-07-13 20:26] VITALS: BP 145/97; PULSE 90; RESP 18; TEMP 36.5
--- NOTE | 2022-07-13 20:34 | CM.DANOTE ---
Discharge Planning/Care Management CM Discharge Assessment Start: 07/13/22 14:30 Freq: Status: Active Protocol: Document 07/13/22 14:30 PACO (Rec: 07/13/22 14:33 PACO [id number]) Discharge Planning Assessment Assigned Prepper BJ Young DPOA/Assigned Designee Name alma Aguirre Contact Information [phone] Advance Directives? No History Provided By Patient,Medical Record Prior Living Arrangements Apartment/Condo Household Members none Independent with ADL's Yes Is patient alert and oriented? Yes Barriers to Discharge No Comment Home w/family and hospice care Discharge Plan Hospice Additional Comment Hospice referral initiated by Renetta Dougherty, workers' compensation commissioner and navigator Whiteboard Updated in Patient Room with Yes name and ext. # of Prepper Reviewed all d/c orders with patient. IV removed. All questions answered. Pt left building with DRUM DYEING MACHINE OPERATOR escorting her via wheelchair to her daughter waiting in the car at the ER. VSS. Platelets completed. Pt states she will have labs done tomorrow and meet with hospice manager as part of d/c plan.
== END 2022-07-13 20:35 | disposition hospice, home (50) | DRG 835 ==
PROVIDERS: Internal Medicine Medical Oncology; Admitting Provider Internal Medicine; Family Provider Student in an Organized Health Care Education/Training Program; PCP Student in an Organized Health Care Education/Training Program; Referring Provider Internal Medicine; Visit Provider Internal Medicine
DX: C92.00 Acute myeloblastic leukemia, not having achieved remission (principal); D61.818 Other pancytopenia; I10 Essential (primary) hypertension; Z20.822 Contact with and (suspected) exposure to COVID-19; Z66 Do not resuscitate
CPT/HCPCS: 36415; 36430; 80053; 83735; 85007; 85014; 85018; 85025; 86850; 86900; 86901; 87635; C9803; P9016; G0379; P9035

== ENCOUNTER → 2022-07-25 15:22 | Outpatient (ROUT) | payer OTHER, MEDICARE, BC, SELFPAY ==
[2022-07-12 16:02] VITALS: BMI 22.8
[2022-07-25 15:41] LABS: Mean Corpuscular HGB Conc 32.3 % (30-36); Mean Corpuscular Volume 92.9 fL (80-100); Platelet Count 72 X10^3/uL (150-400); Red Blood Cell Count 1.85 X10^6/uL (4.0-5.2); Red Cell Distribution Width 20.5 % (11.6-14.8); White Blood Cell Count 26.4 X10^3/uL (4.5-11.0)
[2022-07-25 15:43] LABS: Add Manual Diff / Slide Review YES
[2022-07-25 15:45] LABS: Hematocrit 17.2 % (36-46); Hemoglobin 5.5 g/dL (12.0-16.0)
[2022-07-25 16:34] LABS: Neutrophils Absolute Manual 14256 /uL (3000-5900); Nucleated Red Blood Cells 6 #/Diff; Total Cells Counted 100
[2022-07-25 16:43] LABS: Anisocytosis 1+; Poikilocytosis 1+; Tear Drop Cells 1+
== END ==
PROVIDERS: Internal Medicine Medical Oncology; Family Provider Student in an Organized Health Care Education/Training Program; PCP Family Medicine; Visit Provider Family Medicine
DX: C92.00 Acute myeloblastic leukemia, not having achieved remission (principal)
CPT/HCPCS: 85007; 85025